=== PATIENT | female | born 1995 | race Caucasian/White ===

== ENCOUNTER → 2017-01-31 | Outpatient (CLI) | payer SELFPAY ==
[2017-02-03 02:02] LABS: CHLAMYDIA TRACH RNA*** NOT DETECTED (NOT DETECTED); GC (NEIS GONORRHOEAE)RNA** NOT DETECTED (NOT DETECTED)
== END | disposition home or self-care (01) ==
LOC: C.LABSPEC 16:43
PROVIDERS: ATTEND Obstetrics & Gynecology
DX: Z01.419 Encounter for gynecological examination (general) (routine) without abnormal findings (principal)

== ENCOUNTER 2017-09-08 02:00 | Emergency (ER) | payer OTHER ==
[~2017-09-08] VITALS: Ht 157.5 cm; Wt 53.2 kg
[2017-09-08 02:01] VITALS: TEMP 36.3; Ht 157.5 cm; Wt 53.2 kg
--- NOTE | 2017-09-08 02:08 | EMERGENCY ROOM VISIT NOTE ---
History Report prepared by Mary: Ahsan Duncan Under the Supervision of: Dr. Marlene Carlson D.O. First contact with patient: 02:06 Chief Complaint: ALCOHOL OVERDOSE Stated Complaint: ALCOHOL OVERDOSE History of Present Illness The patient is a 22 year old female who presents to the Emergency Room with complaints of an episode of alcohol intoxication occurring tonight. Per EMS, the patient was found stumbling along [facility]. She states that the patient was found awake and oriented. She notes that the patient's phone is and that she was unable to contact any friends, prompting her visit to the emergency department tonight. The patient reports that she had 6 drinks tonight with friends. She states that she thought that she was fine to walk home at the end of the night so she decided to leave her friends. She denies any physical symptoms and trauma. She notes that she does not have a history of any chronic problems. HPI limited secondary to alcohol intoxication. Source of History: patient History Limited By: intoxication Onset: tonight Position: other (global) Quality: other (alcohol intoxication) Timing: other (an episode) Note: The patient denies any physical symptoms. Review of Systems ROS limited secondary to alcohol intoxication. Past Medical & Surgical Medical Problems: (1) No chronic problems Family History No pertinent family history stated. Social History Smoking Status: Never Smoker Marital Status: single Housing Status: lives with roommate Occupation Status: [employer] student Current/Historical Medications Scheduled Control Pills ( Control Pills), 1 TAB PO DAILY Bupropion (Wellbutrin), Unknown Dose PO DAILY Escitalopram (Lexapro), 10 MG PO DAILY Allergies Coded Allergies: No Known Allergies (Unverified , 09/08/17) Physical Exam Vital Signs Date Time Temp Pulse Resp B/P (MAP) Pulse Ox O2 Delivery O2 Flow Rate FiO2 09/08/17 05:03 85 18 108/75 100 09/08/17 03:33 80 18 114/73 99 Room Air 09/08/17 02:18 104 09/08/17 02:01 36.3 92 18 126/95 95 Room Air Physical Exam General: Pleasant, smells of alcohol. HEENT: Head - normocephalic and atraumatic Pupils 4mm and reactive to light. Extraocular eye muscles are intact, and sclera are anicteric. Nose - moist nasal mucosa without discharge. Mouth - moist buccal mucosa. Oropharynx is nonerythematous and there is no tonsillar exudate or edema noted. Neck: Supple; no JVD, nuchal rigidity, cervical lymphadenopathy. Heart: Regular rate and rhythm. There is a normal S1 and S2 with no murmurs, clicks, or gallops appreciated. Lungs: Clear to auscultation bilaterally with no wheezes, rales, or rhonchi. Abdomen: Soft, completely nontender, nondistended, with good bowel sounds. There are no palpable pulsatile masses or hepatosplenomegaly. There is no guarding, rigidity, or rebound noted. Extremities: No evidence of cyanosis, clubbing, or edema. There are easily palpable peripheral pulses. Skin: warm and dry with good turgor and no rashes. Medical Decision & Procedures Laboratory Results 09/08/17 02:15 Test 09/08/17 02:15 Anion Gap 5.0 mmol/L (3-11) Est Creatinine Clear Calc Drug Dose 78.9 ml/min Estimated GFR () 108.1 Estimated GFR (Non- 93.2 BUN/Creatinine Ratio 12.3 (10-20) Calcium Level 8.5 mg/dl (8.5-10.1) Ethyl Alcohol mg/dL 290.0 mg/dl (0-3) Laboratory results per my review. ED Course 0200: Past medical records reviewed. The patient was evaluated in room B11. A complete history and physical exam was performed. They were observed on the veterans' coordinator and pulse oximeter. Labs were drawn as above 0252: I reevaluated and updated the patient. Her best friend, who is male, is here. She is trying to have a female friend come to pick her up. She is fully awake and says that she never drinks. 0252: I rechecked the patient. She is awake and talking with her friend. She has not been able to find a female friend to take her home. 0454: I rechecked the patient. I had a long conversation with her about her alcohol use. She feels safe going home with the male, who is her best friend. I discussed findings and results with her. She verbalized agreement of the treatment plan. The patient was discharged home. Medical Decision The patient is a 22 year old female who presents to the Emergency Room with complaints of an episode of alcohol intoxication occurring tonight. Differential diagnoses include: alcohol overdose, drug intoxication, hypoglycemia, and head injury. Lab Results Show: Alcohol 290. Normal glucose and renal function. The patient was brought to the emergency department after consuming too much alcohol. There were no obvious signs of trauma or complaints of pain. They were observed closely throughout the night and remained stable while here in the ER. The patient was allowed time to sober up prior to discharge. I had a conversation with the patient about the hazards of such excessive alcohol use. Blood Pressure Screening Patient's blood pressure: Normal blood pressure Blood pressure disposition: Did not require urgent referral Impression Primary Impression: Alcohol overdose Scribe Attestation The scribe's documentation has been prepared under my direction and personally reviewed by me in its entirety. I confirm that the note above accurately reflects all work, treatment, procedures, and medical decision making performed by me. Departure Information Dispostion Home / Self-Care Referrals No Doctor, Assigned (PCP) Forms HOME CARE DOCUMENTATION FORM, IMPORTANT VISIT INFORMATION Patient Instructions My [facility] Additional Instructions Avoid such excessive alcohol use in the future. Tylenol 650 mg every 6 hours for headache. Drink plenty of fluids and take a bland diet today. Return to the emergency department for worsening symptoms or any medical concerns. Problem Qualifiers Primary Impression: Alcohol overdose Encounter type: initial encounter Injury intent: accidental or unintentional Qualified Codes: T51.91XA - Toxic effect of unspecified alcohol , accidental (unintentional), initial encounter
[2017-09-08] MEDS ORDERED: ESCI10TA17 PO (02:46)
[2017-09-08] MEDS ORDERED: BUPR-83 PO (02:47)
[2017-09-08 02:48] LABS: CALCIUM 8.5 mg/dl (8.5-10.1); CREATININE 0.87 mg/dl (0.60-1.20); POTASSIUM 3.6 mmol/L (3.5-5.1)
[2017-09-08] MEDS ORDERED: BCPILLS PO (02:48)
[2017-09-08 05:03] VITALS: BP 108/75; PULSE 85; O2SAT 100
== END 2017-09-08 05:04 | disposition home or self-care (01) ==
LOC: EDBD 02:00 → C.EDB 02:06
DX: T51.91XA Toxic effect of unspecified alcohol, accidental (unintentional), initial encounter (principal); Y90.8 Blood alcohol level of 240 mg/100 ml or more; Z79.3 Long term (current) use of hormonal contraceptives; Z79.899 Other long term (current) drug therapy